=== PATIENT | female | born 1985 | race American Indian/Alaskan Native ===

== ENCOUNTER 2021-06-13 17:05 | Emergency (ER) | payer OTHER ==
[2021-06-13 17:57] VITALS: BP 135/79
--- NOTE | 2021-06-13 18:11 | Emergency Department Report ---
HPI - General Chief Complaint: GI Bleed Time Seen by Provider: 06/13/21 17:59 - HPI HPI: This is a 35-year-old -Citizen Of [place] female presents to the emergency department with a complaint of bright red blood seen when having a bowel movement 1 week ago, and then again today. Patient had a bowel movement 1 week ago after not having a bowel movement for a few days. She said that it was not a hard stool and it just "slid out", but she saw a small amount of bright red blood at that time. Patient had 2 episodes of bright red blood with bowel movements today, but has had regular bowel movements over the past week. She denies any abdominal pain, back pain, rectal pain, rectal itching, vaginal bleeding, vaginal discharge, fever. The patient has a history of IBS. 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 The patient does follow regularly with a primary care physician, Dr. Russell. She has not taken anything for symptoms prior to presentation today. ED Past Medical Hx - Past Medical History Previous Medical History?: Yes - Surgical History Past Surgical History?: Yes ED Review of Systems ROS: Stated complaint: FATIGUE,BLOODY STOOL,NO ENERGY Other details as noted in HPI Comment: All other systems reviewed and negative Constitutional: denies: chills, fever Eyes: denies: eye pain, vision change ENT: denies: ear pain, throat pain Respiratory: denies: cough, shortness of breath Cardiovascular: denies: chest pain, palpitations Gastrointestinal: other (rectal bleeding). denies: abdominal pain, vomiting Genitourinary: denies: dysuria, discharge Musculoskeletal: denies: back pain, arthralgia Skin: denies: rash, lesions Neurological: denies: headache, weakness Physical Exam - Physical Exam Vital Signs: Vital Signs 06/13/21 17:54 Temperature 98.5 F Pulse Rate 72 Respiratory 16 Rate Blood Pressure 135/79 [Left] O2 Sat by Pulse 94 Oximetry Physical Exam: GENERAL: The patient is well-developed well-nourished. HENT: Normocephalic. Atraumatic. Patient has moist mucous membranes. EYES: Extraocular motions are intact. NECK: Supple. Trachea is midline. CHEST/LUNGS: Clear to auscultation. There is no respiratory distress noted. HEART/CARDIOVASCULAR: Regular. There is no tachycardia. There is no murmur. ABDOMEN: Abdomen is soft, nontender. Patient has normal bowel sounds. There is no abdominal distention. SKIN: Skin is warm and dry. NEURO: The patient is awake, alert, and oriented. The patient is cooperative. The patient has no focal neurologic deficits. Normal speech. MUSCULOSKELETAL: There is no tenderness or deformity. There is no limitation range of motion. ED Course Vital Signs 06/13/21 17:54 Temperature 98.5 F Pulse Rate 72 Respiratory 16 Rate Blood Pressure 135/79 [Left] O2 Sat by Pulse 94 Oximetry ED Medical Decision Making - Lab Data Result diagrams: 06/13/21 18:20 06/13/21 18:20 Lab Results 06/13/21 06/13/21 06/13/21 Range/Units 18:20 18:20 18:20 WBC 4.9 (4.5-11.0) K/mm3 RBC 4.29 (3.65-5.03) M/mm3 Hgb 10.6 (10.1-14.3) gm/dl Hct 32.3 (30.3-42.9) % MCV 75 L (79-97) fl MCH 25 L (28-32) pg MCHC 33 (30-34) % RDW 22.5 H (13.2-15.2) % Plt Count 234 (140-440) K/mm3 Lymph % (Auto) 32.6 (13.4-35.0) % [place] % (Auto) 7.3 (0.0-7.3) % Eos % (Auto) 3.2 (0.0-4.3) % Baso % (Auto) 0.7 (0.0-1.8) % Lymph # (Auto) 1.6 (1.2-5.4) K/mm3 [place] # (Auto) 0.4 (0.0-0.8) K/mm3 Eos # (Auto) 0.2 (0.0-0.4) K/mm3 Baso # (Auto) 0.0 (0.0-0.1) K/mm3 Seg Neutrophils % 56.2 (40.0-70.0) % Seg Neutrophils # 2.7 (1.8-7.7) K/mm3 PT 14.6 (12.2-14.9) Sec. INR 1.03 (0.87-1.13) APTT 30.2 (24.2-36.6) Sec. Sodium 134 L (137-145) mmol/L Potassium 4.1 (3.6-5.0) mmol/L Chloride 100.6 (98-107) mmol/L Carbon Dioxide 21 L (22-30) mmol/L Anion Gap 17 mmol/L BUN 8 (7-17) mg/dL Creatinine 0.9 (0.6-1.2) mg/dL Estimated GFR > 60 ml/min BUN/Creatinine Ratio 10 % Glucose 103 H (65-100) mg/dL Calcium 10.5 H (8.4-10.2) mg/dL Total Bilirubin 0.40 (0.1-1.2) mg/dL AST 17 (5-40) units/L ALT 9 (7-56) units/L Alkaline Phosphatase 71 (35-129) units/L Total Protein 8.5 H (6.3-8.2) g/dL Albumin 4.8 (3.9-5) g/dL Albumin/Globulin Ratio 1.3 % - Medical Decision Making This patient presents to the emergency department complaint of one episode of bright red blood in her stool a week ago, and 2 episodes today. She denies any abdominal, rectal, back pain, despite a history of IBS. Abdomen is soft, nondistended and nontoxic in appearance. Patient does not appear in any distress. Labs have been mostly unremarkable including CBC, metabolic panel and coags. Vital signs reassuring throughout her ED course. For all these reasons she appears safe for discharge home at this time. She has good outpatient follow-up with primary care and gastroenterology. She will return to the ER with any worsening of her symptoms or with any acute distress. Critical Care Time: No Critical care attestation.: If time is entered above; I have spent that time in minutes in the direct care of this critically ill patient, excluding procedure time. ED Disposition Clinical Impression: Rectal bleeding Disposition: 01 HOME / SELF CARE / HOMELESS Is pt being admited?: No Condition: Stable Instructions: Rectal Bleeding Additional Instructions: Please follow-up with your primary care physician in the next few days. I am giving you a referral for [place] [facility] to follow-up regarding the rectal bleeding. Return to the emergency department with any worsening of your symptoms, new or concerning symptoms not addressed during this current emergency department visit, or with any acute distress. Referrals: [facility] [Provider Group] - 3-5 Days Forms: Accompanied Note, Work/School Release Form(ED) Time of Disposition: 19:29
[2021-06-13 18:43] LABS: Basophils % (Auto) 0.7 % (0.0-1.8); Eosinophils # (Auto) 0.2 K/mm3 (0.0-0.4); Eosinophils % (Auto) 3.2 % (0.0-4.3); Hematocrit 32.3 % (30.3-42.9); Hemoglobin 10.6 gm/dl (10.1-14.3); Lymphocytes # (Auto) 1.6 K/mm3 (1.2-5.4); Lymphocytes % (Auto) 32.6 % (13.4-35.0); Mean Corpuscular HGB Conc 33 % (30-34); Mean Corpuscular Volume 75 fl (79-97); Monocytes # (Auto) 0.4 K/mm3 (0.0-0.8); Monocytes % (Auto) 7.3 % (0.0-7.3); Platelet Count 234 K/mm3 (140-440); Red Blood Count 4.29 M/mm3 (3.65-5.03)
[2021-06-13 18:54] LABS: INR 1.03 (0.87-1.13)
[2021-06-13 18:55] LABS: Partial Thromboplastin Time 30.2 Sec. (24.2-36.6); Red Cell Distribution Width 22.5 % (13.2-15.2)
[2021-06-13 19:09] LABS: BUN/Creatinine Ratio 10
[2021-06-13 19:11] LABS: Alanine Aminotransferase 9 units/L (7-56); Albumin 4.8 g/dL (3.9-5); Blood Urea Nitrogen 8 mg/dL (7-17); Calcium 10.5 mg/dL (8.4-10.2); Hemolysis Index 2
== END 2021-06-13 20:21 | disposition home or self-care (01) ==
LOC: ED 17:05
DX: K62.5 Hemorrhage of anus and rectum (principal); Z98.890 Other specified postprocedural states; Z88.0 Allergy status to penicillin; Z79.899 Other long term (current) drug therapy
CPT/HCPCS: 36415; 80053; 85025; 85610; 85730; 99283